=== PATIENT | male | born 1935 | race Hispanic/Latino ===

== ENCOUNTER 2018-04-18 09:19 | Emergency (ER) | payer OTHER ==
[2018-04-18 10:23] LABS: Absolute Lymphocytes (CBC) 1.6 K/uL (0.7-4.9); Absolute Monocytes 0.6 K/uL (0.1-1.3); Absolute Neutrophil 2.4 K/uL (1.8-8.0); Basophils % 0.7 % (0-1.3); Eosinophils % 2.5 % (0-4.4); Lymphocytes % 34.1 % (15.3-44.8); MCH 32.7 pg (27.0-35.0); MCV 94.1 fL (80-100); MPV 9.5 fL (7.6-11.3); Monocytes % 11.9 % (3.3-12.3); RBC Red Blood Cell Count 4.68 M/uL (4.33-5.43)
[2018-04-18 10:43] LABS: ALT/SGPT 28 U/L (12-78); AST/SGOT 22 U/L (15-37); Albumin 3.5 g/dL (3.4-5.0); Alkaline Phosphatase 95 U/L (45-117); BUN Blood Urea Nitrogen 11 mg/dL (7-18); Bicarbonate 29 mmol/L (21-32); Bilirubin Total 0.7 mg/dL (0.2-1.0); Glucose Level 102 mg/dL (74-106); Potassium 4.1 mmol/L (3.5-5.1); Protein, Total 6.9 g/dL (6.4-8.2); Sodium Level 141 mmol/L (136-145)
[2018-04-18 11:37] LABS: Urine Blood NEGATIVE (NEG); Urine Glucose NEGATIVE (NEG); Urine Protein NEGATIVE (NEG); Urine Specific Gravity 1.015 (1.005-1.030)
--- NOTE | 2018-04-18 11:52 | ER ---
Nurse's Notes [facility] Name: Ulisses Daniels Age: 82 yrs Sex: Male : 1935 Arrival Date: 04/18/2018 Time: 09:24 Bed 8 Private MD: Diagnosis: Other eating disorders-decreased appetite Presentation: 04/18 09:41 Presenting complaint: Patient states: decreased appetite for 3-4 weeks with fatigue, la1 denies any pain or other problems. Transition of care: patient was not received from another setting of care. Onset of symptoms was April 18, 2018. Risk Assessment: Do you want to hurt yourself or someone else? Patient reports no desire to harm self or others. Initial Sepsis Screen: Does the patient meet any 2 criteria? No. Patient's initial sepsis screen is negative. Does the patient have a suspected source of infection? No. Patient's initial sepsis screen is negative. Care prior to arrival: None. 09:41 Method Of Arrival: Ambulatory la1 09:41 Acuity: DANITA 3 la1 Triage Assessment: 09:44 General: Appears in no apparent distress. Behavior is calm, cooperative. Pain: Denies la1 pain. Historical: - Allergies: 09:42 No Known Allergies; la1 - Home Meds: 09:42 sertraline 25 mg oral tab 1 tab once daily [Active]; la1 - PMHx: 09:42 None; la1 - PSHx: 09:42 peptic ulcers; la1 - Immunization history:: Adult Immunizations up to date. - Social history:: Smoking status: Patient/guardian denies using tobacco. - Ebola Screening: : No symptoms or risks identified at this time. Screenin:44 Abuse screen: Denies threats or abuse. Nutritional screening: No deficits noted. la1 Tuberculosis screening: No symptoms or risk factors identified. Fall Risk None identified. Assessment: 10:12 General: Appears in no apparent distress. Behavior is calm, cooperative. Pain: Denies la1 pain. Neuro: Level of Consciousness is awake, alert, obeys commands, Oriented to person, place, time, situation, Gait is steady, Speech is normal, Facial symmetry appears normal, Pupils are PERRLA. Cardiovascular: Patient's skin is warm and dry. Respiratory: Airway is patent Respiratory effort is even, unlabored, Respiratory pattern is regular, symmetrical, Breath sounds are clear bilaterally. GI: Bowel sounds present X 4 quads. Abd is soft and non tender X 4 quads. Reports decreased appetite. : No signs and/or symptoms were reported regarding the genitourinary system. 10:46 Reassessment: Patient appears in no apparent distress at this time. No changes from la1 previously documented assessment. Patient and/or family updated on plan of care and expected duration. Pain level reassessed. Vital Signs: 09:42 BP 139 / 78; Pulse 62; Resp 16; Temp 97.8(O); Pulse Ox 99% on R/A; Weight 68.04 kg; la1 Height 5 ft. 9 in. (175.26 cm); 09:42 Body Mass Index 22.15 (68.04 kg, 175.26 cm) la1 ED Course: 09:24 Patient arrived in ED. mr 09:41 Sid Gandara RN is Primary Nurse. la1 09:42 Triage completed. la1 09:43 Galo Gonzalez NP is [facility]. pm1 09:43 Darshan Mensah MD is Attending Physician. pm1 09:43 Arm band placed on right wrist. la1 09:43 Placed in gown. Bed in low position. Call light in reach. Pulse ox on. NIBP on. la1 09:44 No provider procedures requiring assistance completed. la1 10:12 Inserted saline lock: 20 gauge in left antecubital area, using aseptic technique. Blood la1 collected. 12:05 IV discontinued, intact, bleeding controlled, No redness/swelling at site. Pressure la1 dressing applied. Administered Medications: No medications were administered Outcome: 11:51 Discharge ordered by . pm1 12:06 Discharged to home ambulatory. la1 12:06 Condition: stable 12:06 Discharge instructions given to patient, Instructed on discharge instructions, follow up and referral plans. Demonstrated understanding of instructions, follow-up care. 12:06 Patient left the ED. la1 Signatures: Ame Ponce mr Sid Gandara RN RN la1 Galo Gonzalez NP [employer] pm1
--- NOTE | 2018-04-18 11:52 | EDPHYS ---
Physician Documentation [facility] Name: Ulisses Daniels Age: 82 yrs Sex: Male : 1935 Arrival Date: 04/18/2018 Time: 09:24 Bed 8 Private MD: ED Physician Darshan Mensah HPI: 04/18 10:30 This 82 yrs old Male presents to ER via Ambulatory with complaints of pm1 Decreased Appetite. 10:30 The patient presents to the emergency department with decreased appetite with fatigue. pm1 Onset: The symptoms/episode began/occurred 4 week(s) ago. Context: occurred at home. Associated signs and symptoms: Pertinent positives: depression over the of his pet dog, Pertinent negatives: paresthesias, focal weakness. Current symptoms: Currently, the patient is not experiencing any symptoms. The patient has not experienced similar symptoms in the past. The patient has been recently seen by a physician: the patient's primary care provider, with similar presenting complaints, and apparently given a diagnosis of depression and prescribed ssri. Patient with complaints of decreased appetite and fatigue for the past 4 weeks. Onset after the of his dog. No suicidal or homicidal ideation. Patient was treated by his PCP for the same complaint and given a prescription for SSRI. Patient reports improvement in his depression. Patient says that he has decreased appetite but is eating and drinking because he knows that he should. Historical: - Allergies: 09:42 No Known Allergies; la1 - Home Meds: 09:42 sertraline 25 mg oral tab 1 tab once daily [Active]; la1 - PMHx: 09:42 None; la1 - PSHx: 09:42 peptic ulcers; la1 - Immunization history:: Adult Immunizations up to date. - Social history:: Smoking status: Patient/guardian denies using tobacco. - Ebola Screening: : No symptoms or risks identified at this time. ROS: 10:30 Constitutional: Negative for fever, chills, and weight loss, Eyes: Negative for injury, pm1 pain, redness, and discharge, ENT: Negative for injury, pain, and discharge, Neck: Negative for injury, pain, and swelling, Cardiovascular: Negative for chest pain, palpitations, and edema, Respiratory: Negative for shortness of breath, cough, wheezing, and pleuritic chest pain, Abdomen/GI: Negative for abdominal pain, nausea, vomiting, diarrhea, and constipation, Back: Negative for injury and pain, : Negative for injury, bleeding, discharge, and swelling, MS/Extremity: Negative for injury and deformity, Skin: Negative for injury, rash, and discoloration, Neuro: Negative for headache, weakness, numbness, tingling, and seizure. 10:30 Psych: Positive for depression, Negative for auditory hallucinations, visual hallucinations, homicidal ideation, insomnia, suicide gesture, suicidal ideation. Exam: 10:30 Constitutional: This is a well developed, well nourished patient who is awake, alert, pm1 and in no acute distress. Head/Face: Normocephalic, atraumatic. Eyes: Pupils equal round and reactive to light, extra-ocular motions intact. Lids and lashes normal. Conjunctiva and sclera are non-icteric and not injected. Cornea within normal limits. Periorbital areas with no swelling, redness, or edema. ENT: Nares patent. No nasal discharge, no septal abnormalities noted. Tympanic membranes are normal and external auditory canals are clear. Oropharynx with no redness, swelling, or masses, exudates, or evidence of obstruction, uvula midline. Mucous membranes moist. Neck: Trachea midline, no thyromegaly or masses palpated, and no cervical lymphadenopathy. Supple, full range of motion without nuchal rigidity, or vertebral point tenderness. No Meningismus. Chest/axilla: Normal chest wall appearance and motion. Nontender with no deformity. No lesions are appreciated. Cardiovascular: Regular rate and rhythm with a normal S1 and S2. No gallops, murmurs, or rubs. Normal PMI, no JVD. No pulse deficits. Respiratory: Lungs have equal breath sounds bilaterally, clear to auscultation and percussion. No rales, rhonchi or wheezes noted. No increased work of breathing, no retractions or nasal flaring. Abdomen/GI: Soft, non-tender, with normal bowel sounds. No distension or tympany. No guarding or rebound. No evidence of tenderness throughout. Back: No spinal tenderness. No costovertebral tenderness. Full range of motion. Skin: Warm, dry with normal turgor. Normal color with no rashes, no lesions, and no evidence of cellulitis. MS/ Extremity: Pulses equal, no cyanosis. Neurovascular intact. Full, normal range of motion. Neuro: Awake and alert, GCS 15, oriented to person, place, time, and situation. Cranial nerves II-XII grossly intact. Motor strength 5/5 in all extremities. Sensory grossly intact. Cerebellar exam normal. Normal gait. Psych: Awake, alert, with orientation to person, place and time. Behavior, mood, and affect are within normal limits. Vital Signs: 09:42 BP 139 / 78; Pulse 62; Resp 16; Temp 97.8(O); Pulse Ox 99% on R/A; Weight 68.04 kg; la1 Height 5 ft. 9 in. (175.26 cm); 09:42 Body Mass Index 22.15 (68.04 kg, 175.26 cm) la1 MDM: 09:53 Patient medically screened. pm1 11:49 Data reviewed: vital signs. Data interpreted: Pulse oximetry: on room air is 99 %. pm1 Interpretation: normal. Counseling: I had a detailed discussion with the patient and/or guardian regarding: the historical points, exam findings, and any diagnostic results supporting the discharge/admit diagnosis, lab results, the need for outpatient follow up, to return to the emergency department if symptoms worsen or persist or if there are any questions or concerns that arise at home. 04/18 10:03 Order name: CBC with Diff; Complete Time: 11:21 pm1 04/18 10:03 Order name: CMP; Complete Time: 11:21 pm1 04/18 10:03 Order name: Urine Dipstick-Ancillary (obtain specimen); Complete Time: 10:33 pm1 04/18 10:03 Order name: IV Saline Lock; Complete Time: 10:13 pm1 04/18 10:35 Order name: Urine Dipstick--Ancillary (enter results); Complete Time: 11:53 eb Administered Medications: No medications were administered Disposition: 14:20 Co-signature as Attending Physician, Darshan Mensah MD I agree with the assessment and kdr plan of care. Disposition: 04/18/18 11:51 Discharged to Home. Impression: Other eating disorders - decreased appetite. - Condition is Stable. - Medication Reconciliation Form, Thank You Letter form. - Follow up: Emergency Department; When: As needed; Reason: Worsening of condition. Follow up: Private Physician; When: 2 - 3 days; Reason: Recheck today's complaints, Continuance of care, Re-evaluation by your physician. - Problem is new. - Symptoms have improved. Signatures: Dispatcher [employer] EDMS Darshan Mensah MD MD [facility] Sid Gandara RN RN la1 Galo Gonzalez, WAREHOUSE DRIVER WAREHOUSE DRIVER pm1 Corrections: (The following items were deleted from the chart) 12:06 11:51 04/18/2018 11:51 Discharged to Home. Impression: Other eating disorders - la1 decreased appetite. Condition is Stable. Forms are Medication Reconciliation Form, Thank You Letter, Antibiotic Education, Prescription Opioid Use. Follow up: Emergency Department; When: As needed; Reason: Worsening of condition. Follow up: Private Physician; When: 2 - 3 days; Reason: Recheck today's complaints, Continuance of care, Re-evaluation by your physician. Problem is new. Symptoms have improved. pm1
== END 2018-04-18 12:06 | disposition home or self-care (01) ==
LOC: ER 09:19
DX: F50.89 Other specified eating disorder (principal); F32.9 Major depressive disorder, single episode, unspecified
CPT/HCPCS: 36415; 80053; 81003; 85025; 99283

== ENCOUNTER 2019-03-01 17:05 | Emergency (ER) | payer OTHER ==
--- NOTE | 2019-03-01 18:25 | RAD REPORT ---
EXAM DESCRIPTION: CT - Thorax Wo Con CLINICAL HISTORY: Chest pain PAIN COMPARISON: No comparisons FINDINGS: Mild areas of tree-in-bud reticulonodular opacities in the posterior segments of the upper lobes, lingula and right middle lobe are seen, which could indicate atypical infection/ ILIANA. No pleu ral thickening or pleural effusion. No pneumothorax. No axillary, mediastinal or hilar adenopathy. No acute fractures are seen. No gross upper abdominal finding. All CT scans are performed using dose optimization technique as appropriate and may include automated exposure control or mA/KV adjustment according to patient size. IMPRESSION: No acute intrathoracic finding seen. Mild areas of tree-in-bud opacity and reticulonodular infiltrate seen as detailed above.
--- NOTE | 2019-03-01 18:29 | EDPHYS ---
Physician Documentation [facility] Name: Ulisses Daniles Age: 83 yrs Sex: Male : 1935 Arrival Date: 03/01/2019 Time: 17:08 Bed 25 Private MD: ED Physician Zachary Mcmillan HPI: 03/01 17:45 This 83 yrs old Male presents to ER via Ambulatory with complaints of Chest gs Pain From Injury. 17:45 The patient or guardian reports chest pain that is located primarily in the anterior gs chest wall. Onset: The symptoms/episode began/occurred acutely, 3 week(s) ago. The pain does not radiate. Associated signs and symptoms: Pertinent negatives: shortness of breath. The chest pain is described as sharp. Duration: The patient or guardian reports multiple episodes, that wax and wane. Modifying factors: the symptoms are aggravated by movement, palpation of area, twisting torso, walking. Severity of pain: At its worst the pain was severe in the emergency department the pain is unchanged. The patient has not experienced similar symptoms in the past. fell tripped while walking. Historical: - Allergies: 17:13 No Known Allergies; hj - PMHx: 17:13 None; hj - PSHx: 17:13 peptic ulcers; hj - Immunization history:: Adult Immunizations up to date. - Social history:: The patient lives at home. - Ebola Screening: : Patient denies travel to an Ebola-affected area in the 21 days before illness onset. ROS: 17:45 All other systems are negative. gs Exam: 17:45 Head/Face: Normocephalic, atraumatic. Eyes: Pupils equal round and reactive to light, gs extra-ocular motions intact. Lids and lashes normal. Conjunctiva and sclera are non-icteric and not injected. Cornea within normal limits. Periorbital areas with no swelling, redness, or edema. ENT: Nares patent. No nasal discharge, no septal abnormalities noted. Tympanic membranes are normal and external auditory canals are clear. Oropharynx with no redness, swelling, or masses, exudates, or evidence of obstruction, uvula midline. Mucous membranes moist. Neck: Trachea midline, no thyromegaly or masses palpated, and no cervical lymphadenopathy. Supple, full range of motion without nuchal rigidity, or vertebral point tenderness. No Meningismus. Cardiovascular: Regular rate and rhythm with a normal S1 and S2. No gallops, murmurs, or rubs. Normal PMI, no JVD. No pulse deficits. Respiratory: Lungs have equal breath sounds bilaterally, clear to auscultation and percussion. No rales, rhonchi or wheezes noted. No increased work of breathing, no retractions or nasal flaring. Abdomen/GI: Soft, non-tender, with normal bowel sounds. No distension or tympany. No guarding or rebound. No evidence of tenderness throughout. Back: No spinal tenderness. No costovertebral tenderness. Full range of motion. Skin: Warm, dry with normal turgor. Normal color with no rashes, no lesions, and no evidence of cellulitis. MS/ Extremity: Pulses equal, no cyanosis. Neurovascular intact. Full, normal range of motion. Neuro: Awake and alert, GCS 15, oriented to person, place, time, and situation. Cranial nerves II-XII grossly intact. Motor strength 5/5 in all extremities. Sensory grossly intact. Cerebellar exam normal. Normal gait. 17:45 Constitutional: The patient appears alert, awake. 17:45 Chest/axilla: Palpation: tenderness, that is moderate, that totally reproduces the patient's complaints. 17:45 ECG was reviewed by the Attending Physician. Vital Signs: 17:13 BP 146 / 77; Pulse 64; Resp 18; Temp 98.1(TE); Pulse Ox 100% on R/A; Weight 67.59 kg; hj Height 5 ft. 9 in. (175.26 cm); Pain 0/10; 17:13 Body Mass Index 22.00 (67.59 kg, 175.26 cm) MDM: 17:31 Patient medically screened. 17:45 Differential diagnosis: Blunt Chest Trauma Chest Wall Contusion Rib Fracture. Data reviewed: vital signs, nurses notes. Counseling: I had a detailed discussion with the patient and/or guardian regarding: the historical points, exam findings, and any diagnostic results supporting the discharge/admit diagnosis, the presence of at least one elevated blood pressure reading (>120/80) during this emergency department visit. Response to treatment: the patient's symptoms have mildly improved after treatment. Special discussion: I have referred the patient to see his PCP for further evaluation of high blood pressure. 03/01 17:31 Order name: Troponin I; Complete Time: 18:21 03/01 17:31 Order name: CT Chest Wo Con; Complete Time: 18:27 03/01 17:15 Order name: EKG; Complete Time: 17:16 EC:45 Rate is 62 beats/min. Rhythm is regular. NM interval is normal. QRS interval is normal. T waves are Inverted in lead aVL. No ST changes noted. Clinical impression: NSR w/ Non-specific ST/T Changes. Interpreted by me. Administered Medications: No medications were administered Disposition: 03/01/19 18:28 Discharged to Home. Impression: Contusion of thorax. - Condition is Stable. - Discharge Instructions: Chest Contusion, Adult, Managing Your Hypertension. - Medication Reconciliation Form, Thank You Letter, Antibiotic Education, Prescription Opioid Use form. - Follow up: Private Physician; When: 2 - 3 days; Reason: Re-evaluation by your physician. Signatures: Dispatcher [employer] EDNancy Nguyen RN RN aj1 Leonardo Daniel RN RN Zachary Mcmillan MD MD Corrections: (The following items were deleted from the chart) 18:41 18:28 03/01/2019 18:28 Discharged to Home. Impression: Contusion of thorax. Condition aj1 is Stable. Discharge Instructions: Managing Your Hypertension. Forms are Medication Reconciliation Form, Thank You Letter, Antibiotic Education, Prescription Opioid Use. Follow up: Private Physician; When: 2 - 3 days; Reason: Re-evaluation by your physician.
--- NOTE | 2019-03-01 18:29 | ER ---
Nurse's Notes [facility] Name: Ulisses Daniels Age: 83 yrs Sex: Male : 1935 Arrival Date: 03/01/2019 Time: 17:08 Bed 25 Private MD: Diagnosis: Contusion of thorax Presentation: 03/01 17:10 Presenting complaint: Patient states: i fell 2 weeks ago from a walking and hurt my L hj chest area, it feels like a muscle pain; denies fever and chills; deneis N/V;. Transition of care: patient was not received from another setting of care. Onset of symptoms was March 01, 2019. Risk Assessment: Do you want to hurt yourself or someone else? Patient reports no desire to harm self or others. Initial Sepsis Screen: Does the patient meet any 2 criteria? No. Patient's initial sepsis screen is negative. Does the patient have a suspected source of infection? No. Patient's initial sepsis screen is negative. Care prior to arrival: None. 17:10 Method Of Arrival: Ambulatory 17:10 Acuity: DANITA 3 hj Historical: - Allergies: 17:13 No Known Allergies; hj - PMHx: 17:13 None; hj - PSHx: 17:13 peptic ulcers; hj - Immunization history:: Adult Immunizations up to date. - Social history:: The patient lives at home. - Ebola Screening: : Patient denies travel to an Ebola-affected area in the 21 days before illness onset. Screenin:54 Abuse screen: Denies threats or abuse. Denies injuries from another. Nutritional aj1 screening: No deficits noted. Tuberculosis screening: No symptoms or risk factors identified. 18:40 Fall Risk None identified. aj1 Assessment: 17:54 General: Appears in no apparent distress. uncomfortable, Behavior is calm, cooperative, aj1 appropriate for age. Pain: Complains of pain in chest Pain does not radiate. Quality of pain is described as aching, Pain began 2 weeks ago. Neuro: Level of Consciousness is awake, alert, obeys commands, Oriented to person, place, time, situation. Cardiovascular: Heart tones S1 S2 present Patient's skin is warm and dry. Respiratory: Airway is patent Respiratory effort is even, unlabored, Respiratory pattern is regular, symmetrical. GI: No signs and/or symptoms were reported involving the gastrointestinal system. : No signs and/or symptoms were reported regarding the genitourinary system. EENT: No signs and/or symptoms were reported regarding the EENT system. Derm: No signs and/or symptoms reported regarding the dermatologic system. Skin is pink, warm \T\ dry. normal. Musculoskeletal: No signs and/or symptoms reported regarding the musculoskeletal system. Circulation, motion, and sensation intact. 18:40 Reassessment: Patient appears in no apparent distress at this time. No changes from aj1 previously documented assessment. Patient and/or family updated on plan of care and expected duration. Pain level reassessed. Patient is alert, oriented x 3, equal unlabored respirations, skin warm/dry/pink. Vital Signs: 17:13 BP 146 / 77; Pulse 64; Resp 18; Temp 98.1(TE); Pulse Ox 100% on R/A; Weight 67.59 kg; hj Height 5 ft. 9 in. (175.26 cm); Pain 0/10; 17:13 Body Mass Index 22.00 (67.59 kg, 175.26 cm) ED Course: 17:08 Patient arrived in ED. as 17:12 Triage completed. hj 17:13 Arm band placed on left wrist. 17:18 Zachary Mcmillan MD is Attending Physician. 17:19 Nancy Lawrence, RN is Primary Nurse. aj1 17:50 Bed in low position. Call light in reach. Side rails up X 1. Side rails up X2. Verbal jp3 reassurance given. Pulse ox on. NIBP on. 17:50 Initial lab(s) drawn, by me, sent to lab. Patient maintains SpO2 saturation greater jp3 than 95% on room air. 17:50 Troponin I Sent. jp3 17:54 No provider procedures requiring assistance completed. aj1 18:10 CT Chest Wo Con In Process Unspecified. EDMS 18:40 Patient did not have IV access during this emergency room visit. aj1 Administered Medications: No medications were administered Outcome: 18:28 Discharge ordered by . 18:40 Discharged to home ambulatory. aj1 18:40 Condition: good 18:40 Discharge instructions given to patient, Instructed on discharge instructions, follow up and referral plans. Demonstrated understanding of instructions, follow-up care. 18:41 Patient left the ED. aj1 Signatures: Dispatcher [employer] Nancy Delgadillo RN RN aj1 Torri Romano Henry, Zachary Fabian RN, MD MD Kishan Morton jp3
--- NOTE | 2019-03-02 15:07 | EKG ---
Test Date: 2019-03-01 Test Time: 17:16:20 Labor Economics Teacher: CARLEE MEASUREMENT RESULTS: Intervals: Rate: 62 OR: 132 QRSD: 76 QT: 384 QTc: 389 [place]: P: 45 OR: 132 QRS: 27 T: 75 INTERPRETIVE STATEMENTS: Normal sinus rhythm Normal ECG No previous ECG available for comparison Electronically Signed On 03-02-19 15:07:36 CDT by Yony Anand
== END 2019-03-01 18:41 | disposition home or self-care (01) ==
LOC: ER 17:05
DX: S20.219A Contusion of unspecified front wall of thorax, initial encounter (principal); W01.0XXA Fall on same level from slipping, tripping and stumbling without subsequent striking against object, initial encounter; Y93.01 Activity, walking, marching and hiking
CPT/HCPCS: 36415; 71250; 84484; 93005; 99284

== ENCOUNTER 2019-06-05 13:07 | Emergency (ER) | payer OTHER ==
--- NOTE | 2019-06-05 14:09 | ER ---
Nurse's Notes [facility] Name: Ulisses Daniels Age: 83 yrs Sex: Male : 1935 Arrival Date: 06/05/2019 Time: 13:11 Bed 25 Private MD: Unknown, Unknown Diagnosis: Conjunctival hemorrhage, left eye Presentation: 06/05 13:14 Presenting complaint: Left eye redness x 2 days. Denies pain/vision changes. Transition hb of care: patient was not received from another setting of care. Onset of symptoms was June 03, 2019. Risk Assessment: Do you want to hurt yourself or someone else? Patient reports no desire to harm self or others. Initial Sepsis Screen: Does the patient meet any 2 criteria? No. Patient's initial sepsis screen is negative. Does the patient have a suspected source of infection? No. Patient's initial sepsis screen is negative. Care prior to arrival: None. 13:14 Method Of Arrival: Ambulatory hb 13:14 Acuity: DANITA 4 hb Historical: - Allergies: 13:15 No Known Allergies; hb - Home Meds: 13:15 sertraline 25 mg Oral tab 1 tab once daily [Active]; hb - PSHx: 13:15 peptic ulcers; hb - Immunization history:: Adult Immunizations up to date. - Social history:: Smoking status: Patient/guardian denies using tobacco. - Ebola Screening: : No symptoms or risks identified at this time. Screenin:42 Abuse screen: Denies threats or abuse. Denies injuries from another. Nutritional mg2 screening: No deficits noted. Tuberculosis screening: No symptoms or risk factors identified. Fall Risk None identified. Assessment: 13:43 General: Appears in no apparent distress. comfortable, Behavior is calm, cooperative. mg2 Pain: Denies pain. Neuro: Level of Consciousness is awake, alert, obeys commands, Oriented to person, place, time, situation. Cardiovascular: Capillary refill < 3 seconds Patient's skin is warm and dry. Respiratory: Airway is patent Respiratory effort is even, unlabored, Respiratory pattern is regular, symmetrical. GI: No signs and/or symptoms were reported involving the gastrointestinal system. : No signs and/or symptoms were reported regarding the genitourinary system. EENT: Eyes left eye redness. Derm: Skin is intact, is healthy with good turgor, Skin is pink, warm \T\ dry. normal. Musculoskeletal: Circulation, motion, and sensation intact. Capillary refill < 3 seconds. 14:09 Reassessment: patient refused visual acuity test. provider informed. mg2 Vital Signs: 13:15 BP 132 / 77; Pulse 55; Resp 16; Temp 97.9; Pulse Ox 100% on R/A; Weight 65.77 kg; hb Height 5 ft. 9 in. (175.26 cm); Pain 0/10; 14:14 BP 130 / 78; Pulse 59; Resp 18; Temp 98(O); Pulse Ox 100% on R/A; Pain 0/10; mg2 13:15 Body Mass Index 21.41 (65.77 kg, 175.26 cm) hb ED Course: 13:11 Patient arrived in ED. ag5 13:12 Unknown, Unknown is Private Physician. ag5 13:15 Triage completed. hb 13:15 Arm band placed on. hb 13:16 Kenneth Mcdowell PA is PHCP. cp 13:16 Zachary Mcmillan MD is Attending Physician. cp 13:18 Chris Guzman, RN is Primary Nurse. mg2 13:43 No provider procedures requiring assistance completed. Patient did not have IV access mg2 during this emergency room visit. 13:44 Patient has correct armband on for positive identification. Pulse ox on. NIBP on. Door mg2 closed. Warm blanket given. 14:08 Narendra Lin MD is Referral Physician. cp Administered Medications: No medications were administered Outcome: 14:09 Discharge ordered by . cp 14:14 Discharged to home ambulatory. mg2 14:14 Condition: stable 14:14 Discharge instructions given to patient, Instructed on discharge instructions, follow up and referral plans. Demonstrated understanding of instructions, follow-up care. 14:14 Patient left the ED. mg2 Signatures: Kenneth Mcdowell PA PA cp Susan Horowitz RN RN Chris Guzman RN RN mg2 KrystenKatherin ag5
--- NOTE | 2019-06-05 14:10 | EDPHYS ---
Physician Documentation [facility] Name: Ulisses Daniels Age: 83 yrs Sex: Male : 1935 Arrival Date: 06/05/2019 Time: 13:11 Bed 25 Private MD: Unknown, Unknown ED Physician Zachary Mcmillan HPI: 06/05 14:00 This 83 yrs old Male presents to ER via Ambulatory with complaints of Eye cp Problem. 14:00 The patient is experiencing redness, to the left eye, caused by an unknown mechanism. cp 14:00 Onset: The symptoms/episode began/occurred this morning. Duration: the symptoms are cp continuous. Associated signs and symptoms: Pertinent negatives: ear ache, fever, pain, drainage, foreign body sensation, change in vision. Patient does not utilize any form of vision correction. Historical: - Allergies: 13:15 No Known Allergies; hb - Home Meds: 13:15 sertraline 25 mg Oral tab 1 tab once daily [Active]; hb - PSHx: 13:15 peptic ulcers; hb - Immunization history:: Adult Immunizations up to date. - Social history:: Smoking status: Patient/guardian denies using tobacco. - Ebola Screening: : No symptoms or risks identified at this time. ROS: 14:04 Constitutional: Negative for body aches, chills, fever, poor PO intake. cp 14:04 Eyes: Positive for redness, of the left eye, Negative for discharge, foreign body sensation, pain, vision loss, visual disturbance. 14:04 ENT: Negative for drainage from ear(s), ear pain, sore throat, difficulty swallowing, difficulty handling secretions. 14:04 Respiratory: Negative for cough, shortness of breath, wheezing. 14:04 Abdomen/GI: Negative for abdominal pain, vomiting, diarrhea, constipation. 14:04 Skin: Negative for cellulitis, rash. 14:04 All other systems are negative. Exam: 14:05 Constitutional: The patient appears in no acute distress, alert, awake, non-toxic, well cp developed, well nourished. 14:05 Head/Face: Normocephalic, atraumatic. cp 14:05 Eyes: Periorbital structures: appear normal, Pupils: equal, round, and reactive to light and accomodation, Extraocular movements: intact throughout, Conjunctiva: subconjunctival hemorrhage(s), seen in the left eye, Lids and lashes: appear normal, bilaterally. 14:05 ENT: External ear(s): are unremarkable, Ear canal(s): are normal, clear, TM's: dullness, bilaterally, Nose: is normal, Mouth: is normal, Posterior pharynx: is normal, airway is patent, no erythema, no exudate. 14:05 Neck: ROM/movement: is normal, is supple, without pain, no range of motions limitations, no nuchal rigidity, Lymph nodes: no appreciated lymphadenopathy. 14:05 Chest/axilla: Inspection: normal, Palpation: is normal, no crepitus, no tenderness. 14:05 Cardiovascular: Rate: bradycardic. 14:05 Respiratory: the patient does not display signs of respiratory distress, Respirations: normal, no use of accessory muscles, no retractions, no shallow respirations. 14:05 Skin: no rash present. 14:05 Neuro: Orientation: to person, place \T\ time. Mentation: is normal, Motor: moves all fours, strength is normal, Gait: is steady. 14:08 Visual Acuity: The patient's visual acuity was not tested, because the patient refused cp the exam. Vital Signs: 13:15 BP 132 / 77; Pulse 55; Resp 16; Temp 97.9; Pulse Ox 100% on R/A; Weight 65.77 kg; hb Height 5 ft. 9 in. (175.26 cm); Pain 0/10; 14:14 BP 130 / 78; Pulse 59; Resp 18; Temp 98(O); Pulse Ox 100% on R/A; Pain 0/10; mg2 13:15 Body Mass Index 21.41 (65.77 kg, 175.26 cm) hb MDM: 13:19 Patient medically screened. cp 14:09 Data reviewed: vital signs, nurses notes, and as a result, I will discharge patient. cp 14:09 Differential diagnosis: Corneal abrasion of Foreign body in Acute iritis of left eye. cp Acute glaucoma in Counseling: I had a detailed discussion with the patient and/or guardian regarding: the historical points, exam findings, and any diagnostic results supporting the discharge/admit diagnosis, the need for outpatient follow up, an opthalmologist, to return to the emergency department if symptoms worsen or persist or if there are any questions or concerns that arise at home. ED course: VSS. Reassurance. Will discharge to home for continued monitoring. Administered Medications: No medications were administered Disposition: :20 Chart complete. cp Disposition: 06/05/19 14:09 Discharged to Home. Impression: Conjunctival hemorrhage, left eye. - Condition is Stable. - Discharge Instructions: Subconjunctival Hemorrhage. - Medication Reconciliation Form, Thank You Letter, Antibiotic Education, Prescription Opioid Use form. - Follow up: Narendra Lin MD; When: 2 - 3 days; Reason: Worsening of condition. - Problem is new. - Symptoms are unchanged. Signatures: Kenneth Mcdowell PA PA cp Susan Horowitz, LISA RN Chris Guzman RN RN mg2 Corrections: (The following items were deleted from the chart) 14:14 14:09 06/05/2019 14:09 Discharged to Home. Impression: Conjunctival hemorrhage, left mg2 eye. Condition is Stable. Forms are Medication Reconciliation Form, Thank You Letter, Antibiotic Education, Prescription Opioid Use. Follow up: Narendra Lin; When: 2 - 3 days; Reason: Worsening of condition. Problem is new. Symptoms are unchanged. cp
[2019-06-05 14:20] VITALS: O2SAT 100
[2019-06-05 14:21] VITALS: BP 130/78; TEMP 98
== END 2019-06-05 14:14 | disposition home or self-care (01) ==
LOC: ER 13:07
DX: H11.32 Conjunctival hemorrhage, left eye (principal)
CPT/HCPCS: 99283

== ENCOUNTER 2019-06-23 12:58 | Emergency (ER) | payer OTHER ==
--- NOTE | 2019-06-23 14:21 | ER ---
Nurse's Notes [facility] Name: Ulisses Daniels Age: 83 yrs Sex: Male : 1935 Arrival Date: 06/23/2019 Time: 13:00 Bed Waiting Private MD: Diagnosis: Presentation: 06/23 13:02 Note Pt going to the restroom first. sv 13:03 Presenting complaint: Patient states: left hip pain started a month ago, hurts worse sv after sleeping at night and attempting to get up. Denies fall or injury. Transition of care: patient was not received from another setting of care. Onset of symptoms was May 2019. Risk Assessment: Do you want to hurt yourself or someone else? Patient reports no desire to harm self or others. Care prior to arrival: None. 13:03 Method Of Arrival: Ambulatory sv 13:03 Acuity: DANITA 4 sv Triage Assessment: 13:06 General: Appears in no apparent distress. uncomfortable, Behavior is calm, cooperative, sv appropriate for age. Pain: Complains of pain in left hip. Neuro: Level of Consciousness is awake, alert, obeys commands, Gait is steady. Respiratory: Respiratory effort is even, unlabored. Historical: - Allergies: 13:05 No Known Allergies; sv - PSHx: 13:05 peptic ulcers; sv Vital Signs: 13:05 BP 140 / 74; Pulse 69; Resp 18; Temp 98.4(O); Pulse Ox 99% ; Weight 56.7 kg; Height 5 sv ft. 9 in. (175.26 cm); 13:05 Body Mass Index 18.46 (56.70 kg, 175.26 cm) sv ED Course: 13:00 Patient arrived in ED. as 13:04 Triage completed. sv 13:05 Arm band placed on. sv 13:40 Patient's name was called from ER lobby. No response. aa5 Administered Medications: No medications were administered Outcome: 14:20 Patient left the ED. sv Signatures: Jeana Curtis, RN RN Torri Gerard Audri RN RN aa5
[2019-06-23 17:03] VITALS: BP 140/74; TEMP 98.4; O2SAT 99
== END 2019-06-23 14:20 | disposition left against medical advice (07) ==
LOC: ER 12:58
DX: Z02.9 Encounter for administrative examinations, unspecified (principal)
CPT/HCPCS: 99281

== ENCOUNTER 2019-06-24 09:35 | Emergency (ER) | payer OTHER ==
--- NOTE | 2019-06-24 11:15 | RAD REPORT ---
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 No acute fracture or AVN pattern.
--- NOTE | 2019-06-24 11:17 | RAD REPORT ---
EXAM DESCRIPTION: RAD - Hip Left 2 View - 06/24/2019 11:08 am CLINICAL HISTORY: PAIN COMPARISON: No comparisons FINDINGS: Moderately severe osteoarthritis involves the left hip. No acute fracture, dislocation or AVN.
--- NOTE | 2019-06-24 11:27 | ER ---
Nurse's Notes [facility] Name: Ulisses Daniels Age: 83 yrs Sex: Male : 1935 Arrival Date: 06/24/2019 Time: 09:38 Bed 11 Private MD: Diagnosis: Pain in left hip;Osteoarthritis of hip Presentation: 06/24 09:55 Presenting complaint: Patient states: "This is the 3rd time I've come over here. I aj1 tried to get into the doctor, but it takes too long. I have a problem with my hip and I want to get it checked out" Patient reports pain to left hip for the past month. Reports that he only has pain when he gets up in the morning. Denies recent fall or injury. Transition of care: patient was not received from another setting of care. Onset of symptoms was 2019. Risk Assessment: Do you want to hurt yourself or someone else? Patient reports no desire to harm self or others. Initial Sepsis Screen: Does the patient meet any 2 criteria? No. Patient's initial sepsis screen is negative. Does the patient have a suspected source of infection? No. Patient's initial sepsis screen is negative. Care prior to arrival: None. 09:55 Method Of Arrival: Ambulatory aj1 09:55 Acuity: DANITA 4 aj1 Triage Assessment: 09:57 General: Appears in no apparent distress. comfortable, Behavior is calm, cooperative, aj1 appropriate for age. Pain: Complains of pain in left hip Pain currently is 0 out of 10 on a pain scale. at worst was 9 out of 10 on a pain scale. EENT: No signs and/or symptoms were reported regarding the EENT system. Neuro: Level of Consciousness is awake, alert, obeys commands, Oriented to person, place, time, situation. Cardiovascular: Patient's skin is warm and dry. Respiratory: Airway is patent Respiratory effort is even, unlabored, Respiratory pattern is regular, symmetrical. GI: No signs and/or symptoms were reported involving the gastrointestinal system. : No signs and/or symptoms were reported regarding the genitourinary system. Derm: No signs and/or symptoms reported regarding the dermatologic system. Skin is pink, warm \\T\\ dry. normal. Musculoskeletal: Circulation, motion, and sensation intact. Range of motion: intact in all extremities. Historical: - Allergies: 09:57 No Known Allergies; aj1 - Home Meds: :57 None [Active]; aj1 - PMHx: :57 None; aj1 - PSHx: :57 None; aj1 - Immunization history:: Flu vaccine is not up to date. - Social history:: Smoking status: Patient/guardian denies using tobacco. - Ebola Screening: : Patient denies travel to an Ebola-affected area in the 21 days before illness onset. - Family history:: not pertinent. Screenin:59 Abuse screen: Denies threats or abuse. Denies injuries from another. Nutritional aj1 screening: No deficits noted. Tuberculosis screening: No symptoms or risk factors identified. 10:50 Fall Risk Fall in past 12 months (25 points). aa5 Assessment: :59 Reassessment: see triage assessment. aj1 10:50 Reassessment: Pt to x-ray . aa5 10:50 Reassessment: Patient is alert, oriented x 3, equal unlabored respirations, skin aa5 warm/dry/pink. 11:33 Reassessment: Patient is alert, oriented x 3, equal unlabored respirations, skin aa5 warm/dry/pink. Vital Signs: 09:57 BP 127 / 74; Pulse 64; Resp 18; Temp 98.4; Pulse Ox 98% on R/A; Weight 65.77 kg (R); aj1 Pain 0/10; ED Course: 09:38 Patient arrived in ED. mr 09:57 Triage completed. aj1 09:57 Arm band placed on Patient placed in an exam room. aj1 09:59 Patient has correct armband on for positive identification. aj1 09:59 No provider procedures requiring assistance completed. aj1 10:00 Kenneth Lee MD is Attending Physician. tenzin 11:09 Pelvis XRAY In Process Unspecified. EDMS 11:09 Hip Left 2 View XRAY In Process Unspecified. EDMS 11:27 Arturo Simmons MD is Referral Physician. tenzin 11:33 Patient did not have IV access during this emergency room visit. aa5 Administered Medications: No medications were administered Outcome: 11:26 Discharge ordered by . tenzin 11:33 Discharged to home ambulatory. aa5 11:33 Condition: stable :33 Discharge instructions given to patient, Instructed on discharge instructions, follow up and referral plans. medication usage, Demonstrated understanding of instructions, follow-up care, medications, Prescriptions given X 3. 11:35 Patient left the ED. aa5 Signatures: Dispatcher [employer] Nancy Delgadillo, LISA RN ajKenneth Simmons MD MD cha Rivera, Mary mr Kimberlee Curtis, LISA RN aa5 Corrections: (The following items were deleted from the chart) 12:02 11:46 Patient left the ED. aa5 aa5 12:03 10:03 Kimberlee Curtis, RN is Primary Nurse. aa5 aa5
--- NOTE | 2019-06-24 11:28 | EDPHYS ---
Physician Documentation [facility] Name: Ulisses Daniels Age: 83 yrs Sex: Male : 1935 Arrival Date: 06/24/2019 Time: 09:38 Bed 11 Private MD: ED Physician Kenneth Lee HPI: 06/24 10:18 This 83 yrs old Male presents to ER via Ambulatory with complaints of Hip Pain.tenzin 10:18 The patient or guardian reports decreased range of motion, pain. that occurred at an [facility] unknown site. The complaints affect the left leg and left hip. Onset: The symptoms/episode began/occurred 1 month(s) ago. Modifying factors: The symptoms are alleviated by nothing, the symptoms are aggravated by nothing. Associated signs and symptoms: Loss of consciousness: the patient experienced no loss of consciousness. Severity of symptoms: At their worst the symptoms were mild, moderate, in the emergency department the symptoms have improved, moderately. The patient has not experienced similar symptoms in the past. Historical: - Allergies: 09:57 No Known Allergies; aj1 - Home Meds: 09:57 None [Active]; aj1 - PMHx: 09:57 None; aj1 - PSHx: 09:57 None; aj1 - Immunization history:: Flu vaccine is not up to date. - Social history:: Smoking status: Patient/guardian denies using tobacco. - Ebola Screening: : Patient denies travel to an Ebola-affected area in the 21 days before illness onset. - Family history:: not pertinent. ROS: 10:18 Constitutional: Negative for fever, chills, and weight loss, Eyes: Negative for injury, tenzin pain, redness, and discharge, ENT: Negative for injury, pain, and discharge, Neck: Negative for injury, pain, and swelling, Cardiovascular: Negative for chest pain, palpitations, and edema, Respiratory: Negative for shortness of breath, cough, wheezing, and pleuritic chest pain, Abdomen/GI: Negative for abdominal pain, nausea, vomiting, diarrhea, and constipation, Back: Negative for injury and pain, : Negative for injury, bleeding, discharge, and swelling, Skin: Negative for injury, rash, and discoloration, Neuro: Negative for headache, weakness, numbness, tingling, and seizure, Psych: Negative for depression, anxiety, suicide ideation, homicidal ideation, and hallucinations, Allergy/Immunology: Negative for hives, rash, and allergies, Endocrine: Negative for neck swelling, polydipsia, polyuria, polyphagia, and marked weight changes, Hematologic/Lymphatic: Negative for swollen nodes, abnormal bleeding, and unusual bruising. 10:18 MS/extremity: Positive for decreased range of motion, pain, of the left hip and left upper thigh. Exam: 10:18 Constitutional: This is a well developed, well nourished patient who is awake, alert, tenzin and in no acute distress. Head/Face: Normocephalic, atraumatic. Eyes: Pupils equal round and reactive to light, extra-ocular motions intact. Lids and lashes normal. Conjunctiva and sclera are non-icteric and not injected. Cornea within normal limits. Periorbital areas with no swelling, redness, or edema. ENT: Nares patent. No nasal discharge, no septal abnormalities noted. Tympanic membranes are normal and external auditory canals are clear. Oropharynx with no redness, swelling, or masses, exudates, or evidence of obstruction, uvula midline. Mucous membranes moist. Neck: Trachea midline, no thyromegaly or masses palpated, and no cervical lymphadenopathy. Supple, full range of motion without nuchal rigidity, or vertebral point tenderness. No Meningismus. Chest/axilla: Normal chest wall appearance and motion. Nontender with no deformity. No lesions are appreciated. Cardiovascular: Regular rate and rhythm with a normal S1 and S2. No gallops, murmurs, or rubs. Normal PMI, no JVD. No pulse deficits. Respiratory: Lungs have equal breath sounds bilaterally, clear to auscultation and percussion. No rales, rhonchi or wheezes noted. No increased work of breathing, no retractions or nasal flaring. Abdomen/GI: Soft, non-tender, with normal bowel sounds. No distension or tympany. No guarding or rebound. No evidence of tenderness throughout. Back: No spinal tenderness. No costovertebral tenderness. Full range of motion. Male : Normal genitalia with no discharge or lesions. Skin: Warm, dry with normal turgor. Normal color with no rashes, no lesions, and no evidence of cellulitis. Neuro: Awake and alert, GCS 15, oriented to person, place, time, and situation. Cranial nerves II-XII grossly intact. Motor strength 5/5 in all extremities. Sensory grossly intact. Cerebellar exam normal. Normal gait. Psych: Awake, alert, with orientation to person, place and time. Behavior, mood, and affect are within normal limits. 10:18 Musculoskeletal/extremity: Extremities: noted in the left hip: decreased ROM, pain, ROM: full active range of motion, full passive range of motion, Circulation is intact in all extremities. Sensation intact. Compartment Syndrome exam of affected extremity: is normal. DVT Exam: no swelling, no tenderness, negative Homans' sign noted on exam, no appreciated bluish discoloration, no erythema, no increased warmth, pain. Vital Signs: 09:57 BP 127 / 74; Pulse 64; Resp 18; Temp 98.4; Pulse Ox 98% on R/A; Weight 65.77 kg (R); aj1 Pain 0/10; MDM: 10:00 Patient medically screened. [facility] 10:23 Data reviewed: vital signs, nurses notes, radiologic studies. [facility] 06/24 10:18 Order name: Pelvis XRAY [facility] 06/24 10:18 Order name: Hip Left 2 View XRAY [facility] Administered Medications: No medications were administered Disposition: 06/24/19 11:26 Discharged to Home. Impression: Pain in left hip, Osteoarthritis of hip. - Condition is Stable. - Discharge Instructions: Joint Pain, Arthritis, Musculoskeletal Pain, Hip Pain, Arthritis, [id number], Joint Pain, [id number]-[id number]. - Prescriptions for Celebrex 200 mg Oral Capsule - take 1 capsule by ORAL route once daily As needed take with food; 20 capsule. Tylenol- Codeine #3 300-30 mg Oral Tablet - take 2 tablets by ORAL route every 6 hours As needed; 26 tablet. Medrol (Yandel) 4 mg Oral Tablets, Dose Pack - take 1 tablet by ORAL route as directed - follow package instructions; 1 packet. - Medication Reconciliation Form, Thank You Letter, Antibiotic Education, Prescription Opioid Use form. - Follow up: Private Physician; When: 2 - 3 days; Reason: Recheck today's complaints, Continuance of care, Re-evaluation by your physician. Follow up: Arturo Simmons MD; When: 2 - 3 days; Reason: Recheck today's complaints, Re-evaluation by your physician. - Problem is new. - Symptoms have improved. Signatures: Dispatcher [employer] EDNancy Nguyen RN RN aj1 Kenneth Lee MD MD cha Calderon, Audri RN RN aa5 Corrections: (The following items were deleted from the chart) 11:27 11:26 06/24/2019 11:26 Discharged to Home. Impression: Pain in left hip; Osteoarthritis tenzin of hip. Condition is Stable. Discharge Instructions: Joint Pain, Arthritis, Musculoskeletal Pain, Hip Pain, Arthritis, [id number], Joint Pain, Zeye-hy-Onon. Prescriptions for Celebrex 200 mg Oral Capsule - take 1 capsule by ORAL route once daily As needed take with food; 20 capsule, Tylenol-Codeine #3 300-30 mg Oral Tablet - take 2 tablets by ORAL route every 6 hours As needed; 26 tablet. and Forms are Medication Reconciliation Form, Thank You Letter, Antibiotic Education, Prescription Opioid Use. Follow up: Private Physician; When: 2 - 3 days; Reason: Recheck today's complaints, Continuance of care, Re-evaluation by your physician. Problem is new. Symptoms have improved. tenzin 11:46 11:27 06/24/2019 11:26 Discharged to Home. Impression: Pain in left hip; Osteoarthritis aa5 of hip. Condition is Stable. Discharge Instructions: Joint Pain, Arthritis, Musculoskeletal Pain, Hip Pain, Arthritis, [id number], Joint Pain, [id number]. Prescriptions for Celebrex 200 mg Oral Capsule - take 1 capsule by ORAL route once daily As needed take with food; 20 capsule, Tylenol-Codeine #3 300-30 mg Oral Tablet - take 2 tablets by ORAL route every 6 hours As needed; 26 tablet. and Forms are Medication Reconciliation Form, Thank You Letter, Antibiotic Education, Prescription Opioid Use. Follow up: Private Physician; When: 2 - 3 days; Reason: Recheck today's complaints, Continuance of care, Re-evaluation by your physician. Follow up: Arturo Simmons; When: 2 - 3 days; Reason: Recheck today's complaints, Re-evaluation by your physician. Problem is new. Symptoms have improved. tenzin
[2019-06-24 11:53] VITALS: BP 127/74; TEMP 98.4; O2SAT 98
== END 2019-06-24 11:46 | disposition home or self-care (01) ==
LOC: ER 09:35
DX: M16.12 Unilateral primary osteoarthritis, left hip (principal)
CPT/HCPCS: 72170; 99283

== ENCOUNTER 2019-06-28 09:34 | Emergency (ER) | payer OTHER ==
--- NOTE | 2019-06-28 09:59 | ER ---
Nurse's Notes [facility] Name: Ulisses Daniels Age: 83 yrs Sex: Male : 1935 Arrival Date: 06/28/2019 Time: 09:36 Bed 9 Private MD: Unknown, Unknown Diagnosis: Unilateral primary osteoarthritis, left hip Presentation: 06/28 09:41 Presenting complaint: Patient states: i am having pain in my LEFT hip, started a month tw2 or two, it acts like i have arthritis, i dont have a pcp. Transition of care: patient was not received from another setting of care. Onset of symptoms was June 28, 2019. Risk Assessment: Do you want to hurt yourself or someone else? Patient reports no desire to harm self or others. Initial Sepsis Screen: Does the patient meet any 2 criteria? No. Patient's initial sepsis screen is negative. Does the patient have a suspected source of infection? No. Patient's initial sepsis screen is negative. Care prior to arrival: None. 09:41 Method Of Arrival: Ambulatory tw2 09:41 Acuity: DANITA 4 tw2 Triage Assessment: 09:42 General: Appears in no apparent distress. Behavior is calm, cooperative, appropriate tw2 for age. Pain: Complains of pain in LEFT hip. 09:55 EENT: No signs and/or symptoms were reported regarding the EENT system. Neuro: Level of tw2 Consciousness is awake, alert, obeys commands, Oriented to person, place, time, situation. Cardiovascular: Patient's skin is warm and dry. Respiratory: Airway is patent Respiratory effort is even, unlabored, Respiratory pattern is regular, symmetrical. GI: No signs and/or symptoms were reported involving the gastrointestinal system. : No signs and/or symptoms were reported regarding the genitourinary system. Derm: No signs and/or symptoms reported regarding the dermatologic system. Musculoskeletal: Reports pain in left hip "i just come to the ER because it takes to long to try to get into a doctor and i dont really have one". Historical: - Allergies: :43 No Known Allergies; tw2 - Home Meds: :43 aspirin 81 mg Oral TbEC 1 tab once daily [Active]; tw2 - PMHx: :43 None; tw2 - PSHx: 09:43 None; tw2 - Immunization history:: Adult Immunizations. - Social history:: Smoking status: . - Ebola Screening: : Patient denies travel to an Ebola-affected area in the 21 days before illness onset. - Family history:: not pertinent. - Hospitalizations: : No recent hospitalization is reported. Screenin:43 Abuse screen: Denies threats or abuse. Nutritional screening: No deficits noted. tw2 Tuberculosis screening: No symptoms or risk factors identified. Fall Risk No secondary diagnosis (0 pts). Assessment: 10:00 General: Appears in no apparent distress. Behavior is calm, cooperative. Pain:. Neuro: iw Level of Consciousness is awake, alert, obeys commands, Oriented to person, place, time, situation, Moves all extremities. Full function. Cardiovascular: Patient's skin is warm and dry. Respiratory: Respiratory effort is even, unlabored, Respiratory pattern is regular, symmetrical. Derm: Skin is intact, is healthy with good turgor. Musculoskeletal: Range of motion: intact in all extremities. Vital Signs: 09:42 BP 150 / 79; Pulse 57; Resp 16; Temp 97.7(O); Pulse Ox 100% on R/A; Weight 65.77 kg tw2 (R); Height 5 ft. 9 in. (175.26 cm); Pain 8/10; 09:42 Body Mass Index 21.41 (65.77 kg, 175.26 cm) tw2 ED Course: 09:36 Patient arrived in ED. ag5 09:37 Unknown, Unknown is Private Physician. ag5 09:41 Triage completed. tw2 09:41 Arm band placed on. tw2 09:45 Bed in low position. Call light in reach. tw2 09:46 Rafy Walden MD is Attending Physician. rn 09:48 Dipika Jimenes RN is Primary Nurse. iw 10:06 No provider procedures requiring assistance completed. Patient did not have IV access iw during this emergency room visit. Administered Medications: No medications were administered Outcome: 09:58 Discharge ordered by . rn 10:06 Discharged to home ambulatory. iw 10:06 Condition: good 10:06 Discharge instructions given to patient, Instructed on discharge instructions, follow up and referral plans. Demonstrated understanding of instructions, follow-up care. 10:07 Patient left the ED. iw Signatures: Dipika Jimenes RN RN iw Rafy Walden MD MD rn Wise, Tara, RN RN tw2 Katherin Bashir ag5 Corrections: (The following items were deleted from the chart) 09:55 09:42 Pain: Complains of pain in LEFT hip tw2 tw2
--- NOTE | 2019-06-28 10:00 | EDPHYS ---
Physician Documentation [facility] Name: Ulisses Daniels Age: 83 yrs Sex: Male : 1935 Arrival Date: 06/28/2019 Time: 09:36 Bed 9 Private MD: Unknown, Unknown ED Physician Rafy Walden HPI: 06/28 09:53 This 83 yrs old Male presents to ER via Ambulatory with complaints of Hip Pain.rn 09:53 The patient or guardian reports pain. sustained from a chronic condition, There is no rn obvious deformity, The patient is able to self ambulate. The patient is able to bear their full body weight. The complaints affect the left hip. Onset: The symptoms/episode began/occurred 2 month(s) ago. Modifying factors: The symptoms are alleviated by the symptoms are aggravated by any movement. Associated signs and symptoms: Pertinent negatives: abdominal pain, chest pain, diarrhea, dizziness, dysuria, fever, incontinence, shortness of breath, vomiting, weakness. Severity of symptoms: At their worst the symptoms were mild, in the emergency department the symptoms are unchanged. The patient has experienced similar episodes in the past, chronically. The patient has been recently seen by a physician:. Just seen here 4 days for same complaint, reports "arthritis setting in", + left hip pain, no injury, no fever, reports hurts in AM when gets up, but then doesn't hurt rest of day. Given 3 prescriptions 4 days ago, and didn't fill them, states too expensive. Hasn't tried OTC meds.. Historical: - Allergies: 09:43 No Known Allergies; tw2 - Home Meds: 09:43 aspirin 81 mg Oral TbEC 1 tab once daily [Active]; tw2 - PMHx: 09:43 None; tw2 - PSHx: 09:43 None; tw2 - Immunization history:: Adult Immunizations. - Social history:: Smoking status: . - Ebola Screening: : Patient denies travel to an Ebola-affected area in the 21 days before illness onset. - Family history:: not pertinent. - Hospitalizations: : No recent hospitalization is reported. ROS: 09:53 Constitutional: Negative for fever, chills, and weight loss, Neck: Negative for injury, rn pain, and swelling, Cardiovascular: Negative for chest pain, palpitations, and edema, Respiratory: Negative for shortness of breath, cough, wheezing, and pleuritic chest pain, Abdomen/GI: Negative for abdominal pain, nausea, vomiting, diarrhea, and constipation, Back: Negative for injury and pain, MS/Extremity: + right hip pain Neuro: Negative for headache, weakness, numbness, tingling, and seizure. Exam: 09:53 Constitutional: This is a well developed, well nourished patient who is awake, alert, rn and in no acute distress. Ambulatory without assistance or difficulty. Abdomen/GI: soft, non-tender Back: No spinal tenderness. No costovertebral tenderness. Full range of motion. Skin: Warm, dry with normal turgor. Normal color with no rashes, no lesions, and no evidence of cellulitis. MS/ Extremity: Pulses equal, no cyanosis. Neurovascular intact. Full, normal range of motion. Equal circumference. Neuro: Awake and alert, GCS 15, oriented to person, place, time, and situation. Cranial nerves II-XII grossly intact. Motor strength 5/5 in all extremities. Sensory grossly intact. Cerebellar exam normal. Normal gait. Vital Signs: 09:42 BP 150 / 79; Pulse 57; Resp 16; Temp 97.7(O); Pulse Ox 100% on R/A; Weight 65.77 kg tw2 (R); Height 5 ft. 9 in. (175.26 cm); Pain 8/10; 09:42 Body Mass Index 21.41 (65.77 kg, 175.26 cm) tw2 MDM: 09:46 Patient medically screened. rn 09:53 Differential diagnosis: bursitis, arthritis, strain. Data reviewed: vital signs, nurses rn notes, old medical records, and as a result, I will discharge patient. Counseling: I had a detailed discussion with the patient and/or guardian regarding: the historical points, exam findings, and any diagnostic results supporting the discharge/admit diagnosis, the need for outpatient follow up, to return to the emergency department if symptoms worsen or persist or if there are any questions or concerns that arise at home. Special discussion: I discussed with the patient/guardian in detail that at this point there is no indication for admission to the hospital. It is understood, however, that if the symptoms persist or worsen the patient needs to return immediately for re-evaluation. ED course: Recommend OTC inflammatories, FROM, no trauma, no fever, normal exam. . Administered Medications: No medications were administered Disposition: 06/28/19 09:58 Discharged to Home. Impression: Unilateral primary osteoarthritis, left hip. - Condition is Stable. - Discharge Instructions: Arthritis. - Medication Reconciliation Form, Thank You Letter, Antibiotic Education, Prescription Opioid Use form. - Follow up: Private Physician; When: As needed; Reason: Recheck today's complaints, Re-evaluation by your physician. - Problem is an ongoing problem. - Symptoms have improved. Signatures: Dipika Jimenes RN RN iw Rafy Walden MD MD rn Wise, LISA Samuel RN tw2 Corrections: (The following items were deleted from the chart) 09:55 09:53 Modifying factors: The symptoms are alleviated by OTC meds, the symptoms are rn aggravated by any movement, rn 10:07 09:58 06/28/2019 09:58 Discharged to Home. Impression: Unilateral primary iw osteoarthritis, left hip. Condition is Stable. Forms are Medication Reconciliation Form, Thank You Letter, Antibiotic Education, Prescription Opioid Use. Follow up: Private Physician; When: As needed; Reason: Recheck today's complaints, Re-evaluation by your physician. Problem is an ongoing problem. Symptoms have improved. rn
[2019-06-28 10:16] VITALS: BP 150/79; TEMP 97.7; O2SAT 100
== END 2019-06-28 10:07 | disposition home or self-care (01) ==
LOC: ER 09:34
DX: M16.12 Unilateral primary osteoarthritis, left hip (principal); Z79.82 Long term (current) use of aspirin
CPT/HCPCS: 99281

== ENCOUNTER 2019-08-14 12:14 | Emergency (ER) | payer OTHER ==
--- NOTE | 2019-08-14 13:34 | ER ---
Nurse's Notes [facility] Name: Ulisses Daniels Age: 83 yrs Sex: Male : 1935 Arrival Date: 08/14/2019 Time: 12:15 Bed Waiting Private MD: Diagnosis: Presentation: 08/14 12:59 Presenting complaint: Patient states: low back pain x 1 week. No known injury. Pt ss believes it is because the way he sleeps. Transition of care: patient was not received from another setting of care. Onset of symptoms was August 07, 2019. Risk Assessment: Do you want to hurt yourself or someone else? Patient reports no desire to harm self or others. Initial Sepsis Screen: Does the patient meet any 2 criteria? No. Patient's initial sepsis screen is negative. Does the patient have a suspected source of infection? No. Patient's initial sepsis screen is negative. Care prior to arrival: None. 12:59 Method Of Arrival: Ambulatory 12:59 Acuity: DANITA 4 ss Historical: - Allergies: 13:00 No Known Allergies; ss - Immunization history:: Flu vaccine is not up to date. - Social history:: Smoking status: Patient/guardian denies using tobacco. - Ebola Screening: : Patient denies exposure to infectious person Patient denies travel to an Ebola-affected area in the 21 days before illness onset. Assessment: 13:33 Reassessment: Unable to wait because dogs are in vehicle. ss Vital Signs: 13:00 BP 142 / 72; Pulse 81; Resp 18; Temp 97.5(TE); Pulse Ox 96% on R/A; Weight 64.41 kg; ss Height 5 ft. 9 in. (175.26 cm); Pain 9/10; 13:00 Body Mass Index 20.97 (64.41 kg, 175.26 cm) ED Course: 12:15 Patient arrived in ED. as 13:00 Triage completed. ss 13:00 Arm band placed on right wrist. ss 13:31 No provider procedures requiring assistance completed. ss Administered Medications: No medications were administered Outcome: 13:31 Eloped from waiting room, before seeing physician ss 13:31 Condition: good 13:33 Patient left the ED. Signatures: Torri Romano Shelby RN RN
[2019-08-14 13:48] VITALS: BP 142/72; TEMP 97.5; O2SAT 96
== END 2019-08-14 13:33 | disposition left against medical advice (07) ==
LOC: ER 12:14
DX: Z53.21 Procedure and treatment not carried out due to patient leaving prior to being seen by health care provider (principal)
CPT/HCPCS: 99281

== ENCOUNTER 2020-03-12 11:31 | Emergency (ER) | payer OTHER ==
--- NOTE | 2020-03-12 12:48 | EDPHYS ---
Physician Documentation [facility] Name: Ulisses Daniels Age: 84 yrs Sex: Male : 1935 Arrival Date: 03/12/2020 Time: 11:38 Bed 15 Private MD: ED Physician Rafy Walden HPI: 03/12 12:46 This 84 yrs old Male presents to ER via Ambulatory with complaints of General pm1 Checkup. 12:46 Patient presenting to the ER for a general check up. He denies any complaints. Denies pm1 generalized weakness. It is unknown whether or not the patient has recently seen a physician, but reports that he goes to the doctor or ER for monthly check ups. Historical: - Allergies: 11:55 No Known Allergies; ll1 - Immunization history:: Adult Immunizations up to date. - Social history:: Smoking status: Patient denies any tobacco usage or history of. Patient/guardian denies using alcohol, street drugs. ROS: 12:46 Constitutional: Negative for fever, chills, and weight loss, Eyes: Negative for injury, pm1 pain, redness, and discharge, ENT: Negative for injury, pain, and discharge, Neck: Negative for injury, pain, and swelling, Cardiovascular: Negative for chest pain, palpitations, and edema, Respiratory: Negative for shortness of breath, cough, wheezing, and pleuritic chest pain, Abdomen/GI: Negative for abdominal pain, nausea, vomiting, diarrhea, and constipation, Back: Negative for injury and pain, MS/Extremity: Negative for injury and deformity, Skin: Negative for injury, rash, and discoloration. 12:46 : Negative for injury, bleeding, discharge, and swelling, Neuro: Negative for headache, weakness, numbness, tingling, and seizure. Exam: 12:46 Constitutional: This is a well developed, well nourished patient who is awake, alert, pm1 and in no acute distress. Head/Face: Normocephalic, atraumatic. 12:46 Skin: Warm, dry with normal turgor. Normal color with no rashes, no lesions, and no evidence of cellulitis. MS/ Extremity: Pulses equal, no cyanosis. Neurovascular intact. Full, normal range of motion. 12:46 Cardiovascular: Exam negative for acute changes, Rate: normal, Rhythm: regular, Pulses: no pulse deficits are appreciated. 12:46 Respiratory: Exam negative for acute changes, respiratory distress, shortness of breath, wheezing. 12:46 Abdomen/GI: Exam negative for acute changes, Inspection: abdomen appears normal, Palpation: abdomen is soft and non-tender, in all quadrants. 12:46 Neuro: Exam negative for acute changes, Orientation: is normal, Mentation: is normal, Motor: is normal, moves all fours, Gait: is steady, at a normal pace, without difficulty. Vital Signs: 11:53 BP 136 / 84; Pulse 63; Resp 17; Temp 97.9; Pulse Ox 98% ; Pain 0/10; ll1 12:30 BP 127 / 69; Pulse 53; Resp 18; Temp 97.9; Pulse Ox 96% on R/A; jr10 MDM: 12:34 Patient medically screened. pm1 12:34 Data reviewed: vital signs. Data interpreted: Pulse oximetry: on room air is 98 %. pm1 Interpretation: normal. 12:46 Counseling: I had a detailed discussion with the patient and/or guardian regarding: the pm1 historical points, exam findings, and any diagnostic results supporting the discharge/admit diagnosis, the need for outpatient follow up, to return to the emergency department if symptoms worsen or persist or if there are any questions or concerns that arise at home. 12:46 ED course: Patient does not want to answer any further questions because "you are pm1 asking too many questions. I'm ready to go home." He was upset that he stayed too long in the ER and his family is waiting for him outside. Administered Medications: No medications were administered Disposition: 16:18 Co-signature as Attending Physician, Rafy Walden MD. rn Disposition: 03/12/20 12:47 Discharged to Home. Impression: Encounter for general examination without complaint, suspected or reported diagnosis. - Condition is Stable. - Medication Reconciliation Form, Thank You Letter, Antibiotic Education, Prescription Opioid Use form. - Follow up: Emergency Department; When: As needed; Reason: Worsening of condition. Follow up: Private Physician; When: 2 - 3 days; Reason: Recheck today's complaints, Continuance of care, Re-evaluation by your physician. - Problem is new. - Symptoms have improved. Signatures: Rafy Walden MD MD rn Marinas, Patrick, NP INDUSTRIAL NURSE pm1 Tamika Scott, RN RN ll1 Fannie Ponce RN RN jr10 Corrections: (The following items were deleted from the chart) 13:10 12:47 03/12/2020 12:47 Discharged to Home. Impression: Encounter for general jr10 examination without complaint, suspected or reported diagnosis. Condition is Stable. Forms are Medication Reconciliation Form, Thank You Letter, Antibiotic Education, Prescription Opioid Use. Follow up: Emergency Department; When: As needed; Reason: Worsening of condition. Follow up: Private Physician; When: 2 - 3 days; Reason: Recheck today's complaints, Continuance of care, Re-evaluation by your physician. Problem is new. Symptoms have improved. pm1
--- NOTE | 2020-03-12 12:48 | ER ---
Nurse's Notes [facility] Name: Ulisses Daniels Age: 84 yrs Sex: Male : 1935 Arrival Date: 03/12/2020 Time: 11:38 Bed 15 Private MD: Diagnosis: Encounter for general examination without complaint, suspected or reported diagnosis Presentation: 03/12 11:53 Chief complaint: Patient states: "I'm just here for a routine check out". Reports ll1 generalized weakness. Denies cough/fever. No N/V/D. Denies pain. States he comes about once a month for a routine check up. Coronavirus screen: Patient denies a cough. Patient denies shortness of breath or difficulty breathing. Patient denies measured and/or subjective temperature greater than 100.4F prior to today's visit. Patient denies travel on a cruise ship or to a country the [facility] currently lists as an affected area. Patient denies contact with known and/or suspected case of COVID-19. Proceed with normal triage. Ebola Screen: Patient denies travel to an Ebola-affected area in the 21 days before illness onset. Initial Sepsis Screen: Does the patient meet any 2 criteria? No. Patient's initial sepsis screen is negative. Does the patient have a suspected source of infection? No. Patient's initial sepsis screen is negative. Risk Assessment: Do you want to hurt yourself or someone else? Patient reports no desire to harm self or others. Onset of symptoms was March 12, 2020. 11:53 Method Of Arrival: Ambulatory ll1 11:53 Acuity: DANITA 3 ll1 Historical: - Allergies: 11:55 No Known Allergies; ll1 - Immunization history:: Adult Immunizations up to date. - Social history:: Smoking status: Patient denies any tobacco usage or history of. Patient/guardian denies using alcohol, street drugs. Screenin:30 Abuse screen: Denies threats or abuse. Denies injuries from another. Nutritional [facility] screening: No deficits noted. Tuberculosis screening: No symptoms or risk factors identified. Fall Risk None identified. Assessment: 12:30 Reassessment: Patient appears in no apparent distress at this time. Pt presents to the [facility] ED via POV stating that he came to the ED for a general check up. Pt is agitated and restless stating that he has been waiting too long and "you are asking too many questions I have someone outside waiting to pick me up and they are ready to leave and I've been here for 3 hours and nobody is helping me." Pt refuses to answer any questions at this time. Appears in NAD, ambulatory independently without difficulty noted. General: Appears in no apparent distress. Behavior is agitated. Pain: Denies pain. Neuro: No deficits noted. Cardiovascular: No deficits noted. Respiratory: No deficits noted. GI: No deficits noted. : No deficits noted. EENT: No deficits noted. Derm: No deficits noted. Musculoskeletal: No deficits noted. Vital Signs: 11:53 BP 136 / 84; Pulse 63; Resp 17; Temp 97.9; Pulse Ox 98% ; Pain 0/10; ll1 12:30 BP 127 / 69; Pulse 53; Resp 18; Temp 97.9; Pulse Ox 96% on R/A; jr10 ED Course: 11:38 Patient arrived in ED. fj1 11:54 Triage completed. ll1 11:55 Arm band placed on Patient placed in an exam room, on a stretcher. ll1 11:58 Galo Gonzalez NP is PHCP. pm1 11:58 Rafy Walden MD is Attending Physician. pm1 12:30 Patient has correct armband on for positive identification. Bed in low position. Call jr10 light in reach. Pulse ox on. NIBP on. 12:56 Fannie Ponce, LISA is Primary Nurse. jr10 13:09 No provider procedures requiring assistance completed. Patient did not have IV access 10 during this emergency room visit. Administered Medications: No medications were administered Outcome: 12:47 Discharge ordered by . pm1 13:09 Discharged to home ambulatory. jr10 13:09 Condition: good 13:09 Discharge instructions given to patient, Instructed on discharge instructions, follow up and referral plans. 13:10 Patient left the ED. jr10 Signatures: Galo Gonzalez NP MANAGER OF HOUSEKEEPING pm1 Juan Ramon Mendez 1 Tamika Scott, LISA RN 1 Fannie Ponce, LISA RN 10
[2020-03-12 13:16] VITALS: TEMP 97.9
[2020-03-12 13:18] VITALS: BP 127/69; O2SAT 96
== END 2020-03-12 13:10 | disposition home or self-care (01) ==
LOC: ER 11:31
DX: Z00.00 Encounter for general adult medical examination without abnormal findings (principal)
CPT/HCPCS: 99283

== ENCOUNTER 2020-05-17 09:51 | Emergency (ER) | payer OTHER ==
[2020-05-17 11:56] LABS: Absolute Lymphocytes (CBC) 0.7 K/uL (0.7-4.9); Basophils % 0.4 % (0-1.3); Hematocrit 45.1 % (39.6-49.0); Lymphocytes % 8.5 % (15.3-44.8); RBC Red Blood Cell Count 4.91 M/uL (4.33-5.43)
[2020-05-17] MEDS ORDERED: NA CHLORIDE 0.9% 1,000 ML ONE (12:01)
[2020-05-17 12:08] LABS: Protime INR 1.29
[2020-05-17 12:21] LABS: ALT/SGPT 25 U/L (12-78); AST/SGOT 37 U/L (15-37); Albumin 2.9 g/dL (3.4-5.0); Alkaline Phosphatase 112 U/L (45-117); BUN Blood Urea Nitrogen 26 mg/dL (7-18); Bicarbonate 30 mmol/L (21-32); Bilirubin Direct 0.5 mg/dL (0-0.2); Glucose Level 113 mg/dL (74-106); Magnesium 2.5 mg/dL (1.8-2.4); NT PRO-BNP 1045 pg/mL (<450); Protein, Total 7.7 g/dL (6.4-8.2); Sodium Level 141 mmol/L (136-145); Troponin (Emerg Dept Use Only) < 0.02 ng/mL (0.0-0.045)
[2020-05-17] MEDS ORDERED: METOPROLOL TAR 25 MG TAB ONE (12:33)
[2020-05-17] MEDS ORDERED: ASPIRIN 81 MG CHEWABLE TABLET ONE (12:33)
--- NOTE | 2020-05-17 13:41 | EDPHYS ---
Physician Documentation [facility] Name: Ulisses Daniels Age: 84 yrs Sex: Male : 1935 Arrival Date: 05/17/2020 Time: 09:52 Bed 5 Private MD: ED Physician Darshan Mensah HPI: 05/17 11:12 This 84 yrs old Male presents to ER via Ambulatory with complaints of Pain All snw Over, Dehydration. 11:12 Onset: The symptoms/episode began/occurred gradually, 2 week(s) ago, and became snw persistent. Associated signs and symptoms: Pertinent positives: generalized malaise, weakness. Pt DIL states she takes him meals TID, over the past 1-2 weeks pt has been generally weak, not getting up from chair, stopped going outside, is more sedate. It is unknown whether or not the patient has had similar symptoms in the past. No PCP, no regular medications, no allergies. Historical: - Allergies: 10: No Known Allergies; ll1 - PSHx: 10:09 Cancert with surgery; ll1 - Immunization history:: Flu vaccine is up to date. - Social history:: Smoking status: Patient denies any tobacco usage or history of. ROS: 11:11 Eyes: Negative for injury, pain, redness, and discharge, ENT: Negative for injury, snw pain, and discharge, Neck: Negative for injury, pain, and swelling, Cardiovascular: Negative for chest pain, palpitations, and edema, Respiratory: Negative for shortness of breath, cough, wheezing, and pleuritic chest pain, Abdomen/GI: Negative for abdominal pain, nausea, vomiting, diarrhea, and constipation, Back: Negative for injury and pain, : Negative for injury, bleeding, discharge, and swelling, MS/Extremity: Negative for injury and deformity, Skin: Negative for injury, rash, and discoloration. 11:11 Constitutional: Positive for body aches, fatigue, malaise, poor PO intake. 11:11 Neuro: Positive for weakness, of the generalized. Exam: 11:09 Constitutional: This is a well developed, well nourished patient who is awake, alert, snw and in no acute distress. Head/Face: Normocephalic, atraumatic. Eyes: Pupils equal round and reactive to light, extra-ocular motions intact. Lids and lashes normal. Conjunctiva and sclera are non-icteric and left is injected. Cornea within normal limits. Periorbital areas with no swelling, redness, or edema. ENT: Nares patent. No nasal discharge, no septal abnormalities noted. Tympanic membranes are normal and external auditory canals are clear. Oropharynx with no redness, swelling, or masses, exudates, or evidence of obstruction, uvula midline. Mucous membranes moist. Neck: Trachea midline, no thyromegaly or masses palpated, and no cervical lymphadenopathy. Supple, full range of motion without nuchal rigidity, or vertebral point tenderness. No Meningismus. Chest/axilla: Normal chest wall appearance and motion. Nontender with no deformity. No lesions are appreciated. Cardiovascular: Regular rate and rhythm with a normal S1 and S2. No gallops, murmurs, or rubs. Normal PMI, no JVD. No pulse deficits. Respiratory: Lungs have equal breath sounds bilaterally, clear to auscultation and percussion. No rales, rhonchi or wheezes noted. No increased work of breathing, no retractions or nasal flaring. Abdomen/GI: Soft, non-tender, with normal bowel sounds. No distension or tympany. No guarding or rebound. No evidence of tenderness throughout. Back: No spinal tenderness. No costovertebral tenderness. Full range of motion. MS/ Extremity: Pulses equal, no cyanosis. Neurovascular intact. Full, normal range of motion. Neuro: Awake and alert, GCS 15, oriented to person, place, time, and situation. Cranial nerves II-XII grossly intact. Motor strength 5/5 in all extremities. Sensory grossly intact. Cerebellar exam normal. Normal gait. Psych: Awake, alert, with orientation to person, place and time. Behavior, mood, and affect are within normal limits. 11:09 Skin: Appearance: Color: pale, Temperature: warm, Moisture: dry. Vital Signs: 11:56 BP 148 / 89; Pulse 81; Resp 16; Pulse Ox 97% on R/A; ss MDM: 11:04 Patient medically screened. snw 12:13 Data reviewed: vital signs, nurses notes. Data interpreted: Pulse oximetry: on room air snw is 97 %. Interpretation: normal. Transition of care: After a detail discussion of the patient's case, care is transferred to Terrell PONCE. 13:35 Counseling: I had a detailed discussion with the patient and/or guardian regarding: the jr8 historical points, exam findings, and any diagnostic results supporting the discharge/admit diagnosis, lab results, radiology results, the need for outpatient follow up, a packaging operator, a neurologist, to return to the emergency department if symptoms worsen or persist or if there are any questions or concerns that arise at home. Response to treatment: the patient's symptoms have mildly improved after treatment. ED course: Patient mildly dehydrated. Otherwise without acute findings. Will refer to cardiology for atrial fib and neuro for progressive dementia history. No reason at this time to admit . 05/17 11:11 Order name: Basic Metabolic Panel snw 05/17 11:11 Order name: CBC with Diff; Complete Time: 12:05 snw 05/17 11:11 Order name: LFT's; Complete Time: 12:22 snw 05/17 11:11 Order name: Magnesium; Complete Time: 12:22 snw 05/17 11:11 Order name: NT PRO-BNP; Complete Time: 12:22 snw 05/17 11:11 Order name: PT-INR; Complete Time: 12:14 snw 05/17 11:11 Order name: Troponin (emerg Dept Use Only); Complete Time: 12:22 snw 05/17 11:11 Order name: XRAY Chest (1 view); Complete Time: 18:52 snw 05/17 11:11 Order name: EKG; Complete Time: 11:12 snw 05/17 11:12 Order name: Basic Metabolic Panel; Complete Time: 12:22 EDMS 05/17 11:11 Order name: Cardiac monitoring; Complete Time: 12:03 snw 05/17 11:11 Order name: EKG - Nurse/Tech; Complete Time: 12:03 snw 05/17 11:11 Order name: IV Saline Lock; Complete Time: 11:43 snw 05/17 11:11 Order name: Labs collected and sent; Complete Time: 11:43 snw 05/17 11:11 Order name: O2 Per Protocol; Complete Time: 11:43 snw 05/17 11:11 Order name: O2 Sat Monitoring; Complete Time: 11:43 snw EC:06 Rate is 78 beats/min. Rhythm is irregularly irregular. QRS Gilbert is Normal. QT interval snw is prolonged. Clinical impression: Atrial Fibrillation. Administered Medications: 11:51 Drug: NS 0.9% 500 ml Route: IV; Rate: bolus; Site: right antecubital; em 12:55 Follow up: IV Status: Completed infusion; IV Intake: 500ml ss 12:25 Drug: Aspirin Chewable Tablet 324 mg Route: PO; em 13:30 Follow up: Response: No adverse reaction em 12:25 Drug: Metoprolol 12.5 mg Route: PO; em 13:30 Follow up: Response: No adverse reaction em 12:54 Drug: NS 0.9% 1000 ml Route: IV; Rate: 125 ml/hr; Site: right antecubital; ss Disposition: 05/18 09:31 Co-signature as Attending Physician, Darshan Mensah MD I agree with the assessment and kdr plan of care. Disposition: 05/17/20 13:40 Discharged to Home. Impression: Atrial fibrillation and flutter, Dementia in other diseases classified elsewhere. - Condition is Stable. - Discharge Instructions: Atrial Fibrillation, Dementia. - Prescriptions for aspirin 81 mg Oral tablet,delayed release (DR/EC) - take 1 tablet by ORAL route once daily; 30 tablet. Carvedilol 6.25 mg Oral Tablet - take 1 tablet by ORAL route 2 times per day with food; 60 tablet. - Medication Reconciliation Form, Thank You Letter, Antibiotic Education, Prescription Opioid Use form. - Follow up: Mal Bateman MD; When: 1 - 2 days; Reason: Recheck today's complaints, Continuance of care, Re-evaluation by your physician. Follow up: Dudley Álvarez MD; When: 2 - 3 days; Reason: Recheck today's complaints, Continuance of care, Re-evaluation by your physician. - Problem is new. - Symptoms have improved. 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 Signatures: Dispatcher [employer] Darshan Cook MD MD kdr Waters, Shelly, PUTTY TINTER MAKER-C PUTTY TINTER MAKER-Chanow John Spear, RN RN em Dipika Jimenes RN RN iw Frida Herrera RN RN ss Roszak, Josh, PA PA jr8 Tamika Scott RN RN ll1 Corrections: (The following items were deleted from the chart) 05/17 14:00 13:40 05/17/2020 13:40 Discharged to Home. Impression: Atrial fibrillation and flutter; iw Dementia in other diseases classified elsewhere. Condition is Stable. Forms are Medication Reconciliation Form, Thank You Letter, Antibiotic Education, Prescription Opioid Use. Follow up: Mal Bateman; When: 1 - 2 days; Reason: Recheck today's complaints, Continuance of care, Re-evaluation by your physician. Follow up: Dudley Álvarez; When: 2 - 3 days; Reason: Recheck today's complaints, Continuance of care, Re-evaluation by your physician. Problem is new. Symptoms have improved. jr8
--- NOTE | 2020-05-17 13:41 | ER ---
Nurse's Notes [facility] Name: Ulisses Daniels Age: 84 yrs Sex: Male : 1935 Arrival Date: 05/17/2020 Time: 09:52 Bed 5 Private MD: Diagnosis: Atrial fibrillation and flutter;Dementia in other diseases classified elsewhere Presentation: 05/17 10:09 Chief complaint: Patient states: Not eating well, increasing confusion, pains all over, ll1 dehydration for 4-6 weeks slowly progressing. No N/V/D. No fever. Coronavirus screen: Client denies travel out of the [place] in the last 14 days. At this time, the client does not indicate any symptoms associated with coronavirus-19. Ebola Screen: Patient denies travel to an Ebola-affected area in the 21 days before illness onset. Initial Sepsis Screen: Does the patient meet any 2 criteria? No. Patient's initial sepsis screen is negative. Risk Assessment: Do you want to hurt yourself or someone else? Patient reports no desire to harm self or others. Onset of symptoms was March 31, 2020. 10:09 Method Of Arrival: Ambulatory ll1 10:09 Acuity: DANITA 3 ll1 14:00 Initial Sepsis Screen: Does the patient have a suspected source of infection? No. iw Patient's initial sepsis screen is negative. Historical: - Allergies: 10:09 No Known Allergies; ll1 - PSHx: 10:09 Cancert with surgery; ll1 - Immunization history:: Flu vaccine is up to date. - Social history:: Smoking status: Patient denies any tobacco usage or history of. Screenin:40 Abuse screen: Denies threats or abuse. Nutritional screening: No deficits noted. em Tuberculosis screening: No symptoms or risk factors identified. Fall Risk None identified. Assessment: 11:40 General: Appears in no apparent distress. comfortable, Behavior is calm, cooperative, em appropriate for age. Pain: Complains of pain in "pain all over". Neuro: Level of Consciousness is awake, alert, obeys commands, Oriented to person, place, time, situation, Appropriate for age. Cardiovascular: Capillary refill < 3 seconds Patient's skin is warm and dry. Respiratory: Airway is patent Respiratory effort is even, unlabored, Respiratory pattern is regular, symmetrical. GI: Abdomen is flat, Reports nausea, vomiting. Derm: Skin is intact, is fragile, Skin is pink, warm \\T\\ dry. Musculoskeletal: Range of motion: intact in all extremities. 13:19 Reassessment: Patient appears in no apparent distress at this time. em Vital Signs: 11:56 BP 148 / 89; Pulse 81; Resp 16; Pulse Ox 97% on R/A; ss ED Course: 09:52 Patient arrived in ED. ds1 10:11 Triage completed. ll1 10:11 Arm band placed on. ll1 11:03 Kasey Riley FNP-C is PHCP. snw 11:03 Darshan Mensah MD is Attending Physician. snw 11:12 John Spear, RN is Primary Nurse. em 11:40 Patient has correct armband on for positive identification. Placed in gown. Bed in low em position. Call light in reach. Side rails up X2. Adult w/ patient. Pulse ox on. NIBP on. 11:44 XRAY Chest (1 view) In Process Unspecified. EDMS 11:47 Initial lab(s) drawn, by wv, sent to lab. Inserted saline lock: 20 gauge in right dh3 antecubital area, using aseptic technique. Blood collected. 12:04 EKG done, by ED staff, reviewed by Kasey BEARDEN. 3 12:16 PHCP role handed off by Kasey Riley FNP-C jr8 12:16 Terrell Coleman PA is PHCP. jr8 13:39 Mal Bateman MD is Referral Physician. jr8 13:40 Dudley Álvarez MD is Referral Physician. jr8 13:59 No provider procedures requiring assistance completed. IV discontinued, intact, em bleeding controlled, No redness/swelling at site. Pressure dressing applied. 13:59 No provider procedures requiring assistance completed. IV discontinued, intact, iw bleeding controlled, No redness/swelling at site. Pressure dressing applied. Administered Medications: 11:51 Drug: NS 0.9% 500 ml Route: IV; Rate: bolus; Site: right antecubital; em 12:55 Follow up: IV Status: Completed infusion; IV Intake: 500ml ss 12:25 Drug: Aspirin Chewable Tablet 324 mg Route: PO; em 13:30 Follow up: Response: No adverse reaction em 12:25 Drug: Metoprolol 12.5 mg Route: PO; em 13:30 Follow up: Response: No adverse reaction em 12:54 Drug: NS 0.9% 1000 ml Route: IV; Rate: 125 ml/hr; Site: right antecubital; ss Intake: 12:55 IV: 500ml; Total: 500ml. ss Outcome: 13:40 Discharge ordered by MD. parikh 13:59 Discharged to home via wheelchair, with family. em 13:59 Condition: good 13:59 Discharge instructions given to patient, family, Instructed on discharge instructions, follow up and referral plans. Demonstrated understanding of instructions, follow-up care. 13:59 Discharged to home via wheelchair, with family. iw 13:59 Condition: good 13:59 Discharge instructions given to patient, family. 14:00 Patient left the ED. iw Signatures: Dispatcher [employer] EDKasey Lyon, SOUND EQUIPMENT MECHANIC-C SOUND EQUIPMENT MECHANIC-Csnw John Spear, RN RN Aida Espana ds1 Dipika Jimenes RN RN Frida Herrera RN RN Terrell Coleman PA PA jr8 Roula Nicole 3 Tamika Scott RN RN ll1
[2020-05-17 14:13] VITALS: BP 148/89; O2SAT 97
--- NOTE | 2020-05-18 11:41 | EKG ---
Test Date: 2020-05-17 Test Time: 12:03:12 Heavy Equipment Service Manager: RAHUL MEASUREMENT RESULTS: Intervals: Rate: 78 NV: QRSD: 72 QT: 408 QTc: 465 [place]: P: NV: QRS: 49 T: 80 INTERPRETIVE STATEMENTS: Atrial fibrillation Nonspecific ST and T wave abnormality, probably digitalis effect Prolonged QT Abnormal ECG Compared to ECG 03/01/2019 17:16:20 ST (T wave) deviation now present Prolonged QT interval now present Sinus rhythm no longer present Electronically Signed On 05-18-20 11:37:44 CDT by Mal Bateman
--- NOTE | 2020-05-18 13:31 | RAD REPORT ---
EXAM DESCRIPTION: RAD - Chest Single View - 05/17/2020 10:20 pm CLINICAL HISTORY: MALAISE COMPARISON: CT chest February 2019 TECHNIQUE: AP portable chest image was obtained 05/17/2020 10:20 pm . FINDINGS: A focal 15 millimeter mass density is present in the right mid chest. Patient has an overa ll prominence of the interstitial pattern throughout the mid and lower lung geller. No other area of mass density identified. No failure or volume overload. Focal mass density is nonspecific. An area of acute infiltrate is possible. Scarring and malignancy a re possible. Patient could have interstitial infiltrate or edema as an etiology for the lung parenchy mal changes. Heart and vasculature are normal. No measurable pleural effusion and no pneumothorax. No acute bony abnormality seen. Aorta is tortuous. Report was delayed due to malfunction of the natural resource specialist system at the time of the study. The right midlung field finding was telephoned to the referring clinician May 18, 2013 at 13 27 hours IMPRESSION: Focal mass density in the right midlung field appearing larger than on a February [address] chest study would be suggested to evaluate for growth. Increased interstitial markings in the mid and lower lung geller could be chronic interstitial lung d isease, interstitial edema or infiltrate.
== END 2020-05-17 14:00 | disposition home or self-care (01) ==
LOC: ER 09:51
DX: I48.91 Unspecified atrial fibrillation (principal); I48.92 Unspecified atrial flutter; F03.90 Unspecified dementia, unspecified severity, without behavioral disturbance, psychotic disturbance, mood disturbance, and anxiety
CPT/HCPCS: 93005; 85025; 80048; 36415; 83735; 85610; 80076; 84484; 83880; 71045; 96360; 99284; J7030